=== PATIENT | female | born 1995 | race Caucasian/White ===

== ENCOUNTER 2017-06-05 16:22 | Emergency (ER) | payer MEDICAID, SELFPAY ==
[2017-06-05 16:23] VITALS: BP 115/84; PULSE 96; RESP 14; TEMP 36.7; O2SAT 96; BMI 16.2
--- NOTE | 2017-06-05 16:40 | ED.VISSUMM ---
- ER Visit Summary Date of Service: 06/05/17 Chief Complaint: Suicidal ideation History of Present Illness: The patient is a 21 F presenting with suicidal ideation. She states this has been ongoing for the past several weeks but has worsened over the last couple of days. She states yesterday she held a razor blade to her wrist. She did not cut herself. She has been depressed and eating less recently. She states that she was recently diagnosed with infertility issues. This has increased the amount of stress in her life. She had a previous suicide attempt at age 16 with overdosing. She was seen by the counseling center today and sent in for further evaluation and transfer. Physical Examination: Vitals are stable. Patient is afebrile. Alert no acute distress. HEENT exam is unremarkable. Neck is supple. Lungs are clear and equal bilaterally. Heart is regular rate and rhythm. Abdomen is soft nontender nondistended. Extremities are unremarkable. Skin is warm and dry. No focal neurologic deficit. Depressed affect with suicidal ideation Remainder of exam is unremarkable. Emergency Department Course and Treatment: [place] slip was completed. CBC, chemistries unremarkable. HCG negative. Tox positive for THC. Alcohol negative. Discussed with the counseling center, they have arranged admission to [facility] for psychiatric evaluation. Disposition: Transfer to [facility] Impression: Suicidal ideation This note was generated with [employer]Datatel dictation software. It may contain incorrect words, spelling, and punctuation that were not noted in review of the chart prior to signing ED Disposition - Plan for ED Patient: Chief Complaint: Suicidal Referrals: Gael Matthews DO [Primary Care Provider] -
--- NOTE | 2017-06-05 16:42 | EKG12_ITS ---
Test Reason : MENTAL ONEAL Blood Pressure : / mmHG Vent. Rate : 072 BPM Atrial Rate : 072 BPM P-R Int : 120 ms QRS Dur : 082 ms QT Int : 350 ms P-R-T Axes : 070 059 051 degrees QTc Int : 383 ms Normal sinus rhythm Normal ECG Confirmed by DUANE ARREAGA, ABHISHEK ([id number]), manager editorial XIOMARA MALAGON ([id number]) on 06/07/2017 1:05:17 PM Referred By: IDA Confirmed By:ABHISHEK ZEPEDA MD
[2017-06-05 17:31] LABS: Absolute Lymphocyte Count 2.72 X10^3/ul (0.83-4.51); Absolute Neutrophil Count 2.9 X10^3/uL (2.0-7.7); Basophil# 0.02 X10^3/uL; Basophil% 0.3 % (0-1); Eosinophil# 0.05 X10^3/uL; Eosinophils% 0.8 % (0-5); Hemoglobin 13.6 g/dl (12.0-15.0); Lymphocyte # 2.72 X10^3/ul (4.0); Lymphocyte % 44.2 % (19-41); Mean Corpuscular Hgb 32.2 pg (27.0-32.0); Mean Corpuscular Volume 94.6 fL (81-99); Mean Platelet Vol. 9.5 fl (6.2-12.0); Monocyte# 0.47 X10^3/uL; Monocyte% 7.6 % (0-10); Neutrophil # 2.88 X10^3/uL (2.7-7.7); Neutrophil % 46.9 % (47-70); Platelet Count 184 K/mm3 (150-450); RBC Distribution Width CV 12.5 % (11.6-14.6); RBC Distribution Width SD 42.9 fl (35.1-43.9); Red Blood Count 4.23 M/mm3 (4.2-5.4); White Blood Count 6.2 K/mm3 (4.4-11.0)
[2017-06-05 17:33] LABS: POSITIVE COUNT NO; POSITIVE DIFFERENTIAL NO; POSITIVE MORPHOLOGY NO
[2017-06-05 17:41] LABS: AST(SGOT) 13 U/L (15-37); Alanine Aminotransfer ALT/SGPT 17 U/L (13-56); Albumin, Serum 3.8 g/dL (3.2-5.0); Alkaline Phosphatase 56 U/L (45-117); Anion Gap 9 (5-15); BUN 11 mg/dL (7-18); BUN/Creat Ratio 14.2 RATIO (10-20); Bilirubin, Direct 0.09 mg/dL (0.00-0.30); Calcium,Total 8.7 mg/dL (8.5-10.1); Chloride 111 mmol/L (98-107); Creatinine, Serum 0.77 mg/dL (0.55-1.02); EST Glomerular Filtration Rate 99 mL/min (>60); Est Glom Filt Rate - Afr Amer 120 mL/min (>60); Estimated Creatinine Clearance 78.62 ml/min; Globulin 3.3 g/dL (2.2-4.2); Glucose 104 mg/dL (74-106); Potassium 3.6 mmol/L (3.5-5.1); Protein, Total 7.1 g/dL (6.4-8.2); Sodium Level 141 mmol/L (136-145)
[2017-06-05 17:53] LABS: Bacteria 0 SEEN /hpf (None Seen); Red Blood Cells-Urine 0 SEEN /hpf (0-5)
--- NOTE | 2017-06-05 17:54 | NURSING ---
ARIE, JESSICA, CALLED. WE ARE TO FAX LABS WHEN ALL BACK. TIM WILL BE COMING IN TO FOLLOWUP ON PATIENT. NITA FAXED HER WRITEUP FROM THE COUNSELING CENTER ALREADY
[2017-06-05 17:55] LABS: Pregnancy, Serum, hCG Quali. NEGATIVE Negative (0-9 Nonpreg)
[2017-06-05 18:08] LABS: Color, Urine Yellow (Yellow); Glucose, Dipstick Normal (Normal); Ketone-Dipstick 5 mg/dl (Negative); Leukocyte Esterase-Dipstick 25 /ul (Negative); Nitrite-Dipstick Negative (Negative); Occult Blood-Urine Negative /ul (Negative); Protein-Dipstick 15 mg/dl (Negative); Urine Bilirubin Dipstick Negative (Negative); Urine Clarity Clear (Clear); Urine Urobilinogen 1 mg/dl (Normal); Urine pH 6.5 (5.0 - 8.0)
[2017-06-05 18:11] LABS: Amphetamine Urine VISTA NEGATIVE (<1000 ng/mL); Barbiturate Urine VISTA NEGATIVE (< 200 ng/mL); Benzodiazepine Urine VISTA NEGATIVE (< 200 ng/mL); Cocaine Urine VISTA NEGATIVE (< 300 ng/mL); Ecstacy Urine VISTA NEGATIVE (< 500 ng/mL); Methadone Urine VISTA NEGATIVE (< 300 ng/mL); PCP Urine VISTA NEGATIVE (< 25 ng/mL); THC Urine VISTA POSITIVE (< 50 ng/mL); Vista UDS pH Range 6
[2017-06-05 18:46] LABS: Mucous, Urine 2+ /hpf (<or=2+); Squamous Epithelial Cells - UA 0-5 SEEN /hpf (5-10); White Blood Cells 0-5 SEEN /hpf (0-5)
--- NOTE | 2017-06-05 19:16 | ED.RN ---
1311 Requested information faxed to [facility] transfer line for admission to [facility] via area secretary.
[2017-06-05 19:28] VITALS: BP 108/78; PULSE 63; RESP 18; O2SAT 96
[2017-06-05 20:19] VITALS: BP 104/62; PULSE 78; RESP 20; O2SAT 97
--- NOTE | 2017-06-05 20:20 | ED.RN ---
THIS NURSE ASKED DR. PRIETO IF IT WAS OK TO ORDER PO ZOFRAN FOR THE PATIENT SHE FEELS NAUSEOUS AND ALSO IF IT IS OK IF PATIENT TAKES HER OWN CONTROL PILL THAT IS LOCATED IN HER LOCKED UP THINGS AT 2200. DR. PRIETO SAID YES TO BOTH.
[2017-06-05] MEDS: Ondansetron 8 MG Tablet 4 MG PO (20:29)
[2017-06-05 22:14] VITALS: BP 100/68; PULSE 54; RESP 18; O2SAT 95
--- NOTE | 2017-06-05 22:14 | ED.RN ---
PATIENT WAS GIVEN PREVIEM TABLET CONTROL OUT OF HER OWN PERSONAL MEDICATIONS. BC BILLS WERE RETURNED TO HER BAGS.
[2017-06-06 00:02] VITALS: BP 111/73; PULSE 70; RESP 18; O2SAT 97
[2017-06-06 03:31] VITALS: RESP 18
[2017-06-06 05:02] VITALS: RESP 18
[2017-06-06 06:01] VITALS: RESP 18
--- NOTE | 2017-06-06 08:50 | ED.RN ---
PT SLEEPING. BREAKFAST TRAY DELIVERED AT 0800, PT AWAKENED AND TRAY LEFT AT BEDSIDE. PT DENIES FURTHER NEEDS.
[2017-06-06] MEDS: Ondansetron ODT 4 MG Tablet PO (10:34)
[2017-06-06 11:02] VITALS: BP 110/77; PULSE 18
== END 2017-06-06 11:03 | disposition home or self-care (01) ==
LOC: ED 17:14
PROVIDERS: Emergency Provider Emergency Medicine; Family Provider Family Medicine; PCP Family Medicine
DX: R45.851 Suicidal ideations (principal); Z72.0 Tobacco use
CPT/HCPCS: 80048; 80076; 80307; 80320; 81001; 84703; 85025; 93005; 99284; G0480

== ENCOUNTER 2017-08-05 21:03 | Emergency (ER) | payer MEDICAID, SELFPAY ==
[2017-08-05 21:04] VITALS: BP 132/90; PULSE 138; RESP 20; TEMP 38.5; O2SAT 95; BMI 17.1
--- NOTE | 2017-08-05 21:54 | CT_ITS ---
STUDY: CT ABDOMEN AND PELVIS WITH CONTRAST REASON FOR EXAM: Female, 21 years old. Abdominal pain and right lower quadrant pain RADIATION DOSAGE (If Supplied By Facility): CTDIvol = ( 5.58 ) mGy, DLP = ( 218.96 ) mGycm TECHNIQUE: Transaxial images were obtained from the dome of the diaphragm to the symphysis pubis with oral contrast. 100ML ml of Isovue 300 contrast was administered. Sagittal and coronal images were reconstructed. Individualized dose optimization techniques were used for this CT. COMPARISON: None. FINDINGS: Left lower lobe pneumonia. The visualized portions of the heart are within normal limits. Normal liver. Normal gallbladder and extrahepatic biliary system. Normal spleen. Normal pancreas. Normal bilateral adrenal glands. Normal right kidney. Normal left kidney. Normal visualized stomach. Normal small intestine. Normal colon. The appendix is visualized and appears normal. Normal abdominal aorta. Normal inferior vena cava. Normal retroperitoneum. Normal urinary bladder. Normal abdominal wall. Normal osseous structures. CT/Abdomen/Pelvis WITH Contrast IMPRESSION: Left lower lobe pneumonia. No evidence of appendicitis, acute intestinal pathology or acute obstructive uropathy. Electronically Signed: Eduardo Oviedo MD at 0:21 EDT Tel , Service support ,
--- NOTE | 2017-08-05 21:58 | ED.DCSUM_ITS ---
- ER Visit Summary Date of Service: 08/05/17 Chief Complaint: Fever History of Present Illness: The patient is a 21 F intermittent fevers for the past 3 weeks. One and half week ago saw the urgent care due to having sore throat symptoms. Was told she had gastritis. She had no abdominal pain at that time. No vomiting at that time. She did state intermittent diarrhea and constipation. Has tolerated oral fluids. No recent antibiotics. States over the last 2 days pain right side abdomen progressive the right lower quadrant. Urinary urgency. Last menstrual period 2 weeks ago. Normal cycles. No history of ovarian cysts. Sore throat has improved. Intermittent nausea vomiting for 2 days 3-4 episodes no hematemesis. Last meal in oral intake was at 2 PM 8 hours ago. No surgical history. States that generalized myalgias also. No flu vaccination this year. Complains of cough over the last couple days also. Physical Examination: General: Alert and oriented ?3, no acute distress, nontoxic HEENT: Normocephalic, atraumatic. Mild dry mucosa membranes Neck: supple, nontender. Cardiovascular: Regular tachycardic rate 102 and rhythm, no murmurs Respiratory: Normal breath sounds, symmetric, no distress Abdomen: Soft, mild tenderness right lower quadrant without guarding or rebound. Normal bowel sounds. Negative Mcwilliams's. Back: No CVA tenderness Extremities: Nontender, no edema, pulses intact ?4 Neuro: no focal neurological deficits. Test Results: White count 9.4. Hemoglobin 12. Creatinine 0.73. Urine leukocytes 25, negative nitrites, negative white blood cells. Influenza negative. CT scan abdomen pelvis with contrast noted normal appendix. No intra -abdominal process. Noted left lower lobe pneumonia. Emergency Department Course and Treatment: Patient initial triage heart rate was 138, on my evaluation 102. She is nontoxic. She was febrile at 101. She has slight right lower quadrant tenderness without guarding or rebound. Appendicitis workup initiated. Labs normal. Urine noted 25 leukocytes, negative nitrites or white blood cell counts. Influenza was negative. Given IV fluids and Zofran. Find any medications for pain. Reevaluation heart rate improved in the 90s, fevers improved. Pending CT scan results. Mother was present on reevaluation, there is no family history of Crohn's or ulcerative colitis. Patient's vitals improved in the ED. Clinically felt much better. CT results notes normal appendix. There is no intra-abdominal process. However did note left lower lobe infiltrate. Patient was not tachypneic or hypoxic. She is febrile with cough. She will be treated for community acquired pneumonia with her fever. Doxycycline was started. The signs and symptoms return. Otherwise should follow-up with her PCP. All questions were answered. Treatment Plan: [] Disposition: Discharge Impression: 1. Right lower quadrant abdominal pain 2. Nausea and vomiting 3. Fever 4. Community-acquired pneumonia This note was generated with [employer] dictation software. It may contain incorrect words, spelling, and punctuation that were not noted in review of the chart prior to signing ED Disposition - Plan for ED Patient: Disposition: Home or Assisted Living Chief Complaint: Fever Diagnosis: Community acquired pneumonia, Right lower quadrant abdominal pain, Nausea and vomiting, Fever Instructions: ED Pneumonia Adult, ED Diet Vomiting Diarrhea Prescriptions: Ondansetron [Zofran Odt] 4 mg PO Q8H PRN PRN #10 tablet PRN Reason: Nausea Doxycycline Monohydrate 100 mg PO BID #20 capsule Referrals: Gael Matthews DO [Primary Care Provider] - 3-5 Days
[2017-08-05 22:11] VITALS: O2SAT 18
[2017-08-05] MEDS: 0.9% Normal Saline 1,000 ML 1000 ML IV (22:15)
[2017-08-05] MEDS: Ondansetron 4 MG/2 ML Vial IV (22:15)
[2017-08-05 22:17] LABS: Absolute Lymphocyte Count 2.11 X10^3/ul (0.83-4.51); Absolute Neutrophil Count 6.4 X10^3/uL (2.0-7.7); Basophil# 0.01 X10^3/uL; Basophil% 0.1 % (0-1); Eosinophil# 0.05 X10^3/uL; Eosinophils% 0.5 % (0-5); Hematocrit 35.7 % (37-47); Lymphocyte # 2.11 X10^3/ul (4.0); Lymphocyte % 22.4 % (19-41); Mean Corp Hgb Conc 33.6 g/gl (32-36); Mean Corpuscular Hgb 30.8 pg (27.0-32.0); Mean Corpuscular Volume 91.5 fL (81-99); Monocyte# 0.89 X10^3/uL; Monocyte% 9.4 % (0-10); Neutrophil # 6.36 X10^3/uL (2.7-7.7); Neutrophil % 67.5 % (47-70); Platelet Count 204 K/mm3 (150-450); RBC Distribution Width CV 12.2 % (11.6-14.6); RBC Distribution Width SD 40.8 fl (35.1-43.9); White Blood Count 9.4 K/mm3 (4.4-11.0)
[2017-08-05 22:20] LABS: POSITIVE COUNT NO; POSITIVE DIFFERENTIAL NO; POSITIVE MORPHOLOGY NO
[2017-08-05 22:24] LABS: Mucous, Urine 0 SEEN /hpf (<or=2+); Red Blood Cells-Urine 0 SEEN /hpf (0-5)
[2017-08-05 22:29] LABS: Anion Gap 8 (5-15); BUN 8 mg/dL (7-18); Calcium,Total 8.3 mg/dL (8.5-10.1); Chloride 109 mmol/L (98-107); Creatinine, Serum 0.73 mg/dL (0.55-1.02); EST Glomerular Filtration Rate 107 mL/min (>60); Est Glom Filt Rate - Afr Amer 129 mL/min (>60); Estimated Creatinine Clearance 89.74 ml/min; Glucose 80 mg/dL (74-106); Potassium 3.7 mmol/L (3.5-5.1); Sodium Level 139 mmol/L (136-145)
[2017-08-05 22:32] LABS: Color, Urine Yellow (Yellow); Glucose, Dipstick Normal (Normal); Ketone-Dipstick 5 mg/dl (Negative); Leukocyte Esterase-Dipstick 25 /ul (Negative); Nitrite-Dipstick Negative (Negative); Occult Blood-Urine Negative /ul (Negative); Protein-Dipstick 30 mg/dl (Negative); Specific Gravity, Urine 1.015 (1.002-1.030); Urine Bilirubin Dipstick Negative (Negative); Urine Clarity Clear (Clear); Urine Urobilinogen 1 mg/dl (Normal)
[2017-08-05 22:34] LABS: Internal QC Validated? YES +Cl - CLEAR BKGD
[2017-08-05 22:35] LABS: Pregnancy, Urine Negative Negative
[2017-08-05 22:38] LABS: Bacteria 1+ /hpf (None Seen); Squamous Epithelial Cells - UA 0-5 SEEN /hpf (5-10); White Blood Cells 0-5 SEEN /hpf (0-5)
[2017-08-05 23:06] VITALS: BP 114/72; PULSE 93; RESP 18; TEMP 37.6; O2SAT 97
[2017-08-05] MEDS: 0.9% Normal Saline 1,000 ML 150 ML IV (23:08)
[2017-08-06 00:20] VITALS: BP 128/89; PULSE 92; RESP 16; O2SAT 97
[2017-08-06] MEDS: Doxycycline 100 MG CAPSULE PO (00:37)
[2017-08-06 00:41] VITALS: BP 128/89; PULSE 92; RESP 16
== END 2017-08-06 00:41 | disposition home or self-care (01) ==
PROVIDERS: Emergency Provider Emergency Medicine; Family Provider Family Medicine; PCP Family Medicine
DX: J18.9 Pneumonia, unspecified organism (principal); R10.31 Right lower quadrant pain; R50.9 Fever, unspecified; R11.2 Nausea with vomiting, unspecified; F41.9 Anxiety disorder, unspecified; F32.9 Major depressive disorder, single episode, unspecified; Z72.0 Tobacco use; Z79.899 Other long term (current) drug therapy
CPT/HCPCS: 74177; 80048; 81001; 81025; 85025; 87804; 96361; 96374; 99284; J7030; Q9967; A4216; J2405

== ENCOUNTER → 2017-10-18 11:20 | Outpatient (CLI) | payer MEDICAID, SELFPAY ==
[2017-10-23 10:50] LABS: HPV Reflexed? NOT INDICATED
== END ==
PROVIDERS: Family Provider Family Medicine; PCP Family Medicine; Visit Provider Nurse Practitioner Women's Health
DX: Z12.4 Encounter for screening for malignant neoplasm of cervix (principal)
CPT/HCPCS: 88175; G0145

== ENCOUNTER 2017-11-29 17:20 | Emergency (ER) | payer MEDICAID, SELFPAY ==
[2017-11-29 17:20] VITALS: BP 115/74; PULSE 90; RESP 16; TEMP 37.3; O2SAT 97; BMI 19.1
[2017-11-29] MEDS: 0.9% Normal Saline 1,000 ML 1000 ML IV (17:53)
[2017-11-29] MEDS: Dicyclomine 10 MG Capsule 20 MG PO (17:53)
[2017-11-29] MEDS: Loperamide 2 MG Capsule 4 MG PO (17:53)
[2017-11-29 18:14] LABS: Absolute Lymphocyte Count 2.29 X10^3/ul (0.83-4.51); Absolute Neutrophil Count 3.3 X10^3/uL (2.0-7.7); Basophil# 0.01 X10^3/uL; Basophil% 0.2 % (0-1); Eosinophil# 0.05 X10^3/uL; Eosinophils% 0.8 % (0-5); Hematocrit 38.3 % (37-47); Hemoglobin 12.9 g/dl (12.0-15.0); Lymphocyte # 2.29 X10^3/ul (4.0); Mean Corp Hgb Conc 33.7 g/gl (32-36); Mean Corpuscular Hgb 31.3 pg (27.0-32.0); Mean Platelet Vol. 9.6 fl (6.2-12.0); Monocyte# 0.56 X10^3/uL; Neutrophil # 3.28 X10^3/uL (2.7-7.7); Platelet Count 169 K/mm3 (150-450); RBC Distribution Width SD 43.9 fl (35.1-43.9); Red Blood Count 4.12 M/mm3 (4.2-5.4); White Blood Count 6.2 K/mm3 (4.4-11.0)
[2017-11-29 18:19] LABS: POSITIVE COUNT NO; POSITIVE DIFFERENTIAL NO; POSITIVE MORPHOLOGY NO
[2017-11-29 18:24] LABS: ALB/GLOB Ratio 1.1 RATIO (0.9-2.4); AST(SGOT) 13 U/L (15-37); Alanine Aminotransfer ALT/SGPT 15 U/L (13-56); Albumin, Serum 3.6 g/dL (3.2-5.0); Alkaline Phosphatase 51 U/L (45-117); Anion Gap 6 (5-15); BUN 8 mg/dL (7-18); BUN/Creat Ratio 9.6 RATIO (10-20); Calcium,Total 8.5 mg/dL (8.5-10.1); Chloride 110 mmol/L (98-107); Creatinine, Serum 0.83 mg/dL (0.55-1.02); EST Glomerular Filtration Rate 91 mL/min (>60); Est Glom Filt Rate - Afr Amer 110 mL/min (>60); Estimated Creatinine Clearance 87.55 ml/min; Globulin 3.3 g/dL (2.2-4.2); Glucose 87 mg/dL (74-106); Potassium 3.9 mmol/L (3.5-5.1); Protein, Total 6.9 g/dL (6.4-8.2); Sodium Level 141 mmol/L (136-145)
[2017-11-29 18:28] LABS: Pregnancy, Serum, hCG Quali. NEGATIVE Negative (0-9 Nonpreg)
[2017-11-29 18:55] LABS: Bacteria 0 SEEN /hpf (None Seen); Mucous, Urine 0 SEEN /hpf (<or=2+); Red Blood Cells-Urine 0 SEEN /hpf (0-5); Squamous Epithelial Cells - UA 0 SEEN /hpf (5-10); White Blood Cells 0 SEEN /hpf (0-5)
[2017-11-29 19:12] LABS: Color, Urine Yellow (Yellow); Glucose, Dipstick Normal (Normal); Ketone-Dipstick Negative (Negative); Leukocyte Esterase-Dipstick Negative /ul (Negative); Nitrite-Dipstick Negative (Negative); Occult Blood-Urine Negative /ul (Negative); Protein-Dipstick Negative (Negative); Specific Gravity, Urine 1.015 (1.002-1.030); Urine Bilirubin Dipstick Negative (Negative); Urine Clarity Clear (Clear); Urine Urobilinogen Normal (Normal)
[2017-11-29 19:23] LABS: Lipase 354 U/L (73-393)
[2017-11-29 19:28] VITALS: BP 116/76; PULSE 76; RESP 16; O2SAT 98
--- NOTE | 2017-11-29 19:43 | ED.VISSUMM ---
- ER Visit Summary Date of Service: 11/29/17 Chief Complaint: [Diarrhea and abdominal pain] History of Present Illness: The patient is a 22 F [presents the emergency department complaint of diarrhea and abdominal pain that she has had ongoing for about 3 days. Patient states that yesterday she had about 10 episodes of watery to oily stools. Patient has had intermittent nausea but no vomiting. Patient denies any blood in her stool. She denies any sick contacts. Patient has had some chills but no documented fever. Patient states that her urine has been dark for several days. Patient denies any recent antibiotic usage. She denies any recent travel. Patient states that her last antibiotic usage was last August. Patient's last menstrual period was 2 weeks ago.] Physical Examination: [HEENT-PERRLA, EOMI. Cranial nerves II through XII grossly intact. TMs clear. Mucous membranes moist. No adenopathy. Cardiovascular-regular rate and rhythm without murmur or ectopy Lungs-clear to auscultation, chest wall stable without crepitus or subcu emphysema Abdomen-normoactive bowel sounds, soft. Patient has some mild diffuse tenderness on palpation. There is no rebound, rigidity, or perineal signs. No tenderness over the right upper quadrant. Negative Mcwilliams sign. Extremities-intact ?4, normal range of motion, normal pulses, atraumatic] Test Results: [CBC with differential obtained was normal. Chemistries were normal. LFTs were normal. Lipase was 354. Urinalysis was normal. HCG was negative.] Emergency Department Course and Treatment: [Patient received a liter normal same fluid bolus and given Zofran and Bentyl as well as Imodium. I had ordered initially stool for enteric pathogens however patient unable to produce a sample despite a stay of over 2 hours.] Treatment Plan: [I wanted to send patient home with a prescription to bring in a stool sample to the lab however she states that if she is not getting better that she will just come back to the hospital and does not want a prescription. Patient will be given a prescription for Zofran and Bentyl and advised use Imodium as needed for diarrhea] Disposition: [Discharged home in stable condition] Impression: [Gastroenteritis Abdominal pain] This note was generated with [employer] dictation software. It may contain incorrect words, spelling, and punctuation that were not noted in review of the chart prior to signing ED Disposition - Plan for ED Patient: Chief Complaint: Abd Pain Referrals: Gael Matthews DO [Primary Care Provider] -
--- NOTE | 2017-11-29 19:46 | ED.DEP ---
ED Disposition - Plan for ED Patient: Chief Complaint: Abd Pain Instructions: ED Abdominal Pain Unkn Cause, ED Gastroenteritis Viral Prescriptions: Ondansetron [Zofran Odt] 4 mg PO Q8H PRN PRN #10 tab PRN Reason: Nausea Dicyclomine HCl [Bentyl] 20 mg PO TIDAC #20 cap Referrals: Gael Matthews DO [Primary Care Provider] - 3-5 Days
[2017-11-29 20:08] VITALS: BP 101/89; PULSE 60; RESP 18; O2SAT 99
== END 2017-11-29 20:09 | disposition home or self-care (01) ==
LOC: ED 18:30
PROVIDERS: Emergency Provider Emergency Medicine; Family Provider Family Medicine; PCP Family Medicine
DX: K52.9 Noninfective gastroenteritis and colitis, unspecified (principal); R10.84 Generalized abdominal pain; Z72.0 Tobacco use
CPT/HCPCS: 80053; 81001; 83690; 84703; 85025; 96360; 96361; 99284; J7030; A4216

== ENCOUNTER → 2018-10-18 | Outpatient (CLI) | payer MEDICAID, SELFPAY ==
[2018-10-02 14:38] VITALS: BMI 19.1
--- NOTE | 2018-10-18 10:58 | US_ITS ---
STUDY: ULTRASOUND BREAST - LEFT REASON FOR EXAM: Female, 23 years old. Ko no evidence of TECHNIQUE: Axial and longitudinal images of the LEFT breast were performed with a high resolution ultrasound transducer. COMPARISON: None. FINDINGS: LEFT Breast: There is 0.8 x 0.7 cm hypoechoic nodule at 1:00 o'clock near the nipple most likely represented a cyst with some debris, there is some posterior enhancement behind. There is hyperechoic nodule measures 1 x 1 x 0.3 cm this is around 12:00 most likely a lipoma. These two findings can be followed up within 3-6 months. US/Breast Limited Unilateral IMPRESSION: Benign findings for follow-up as above. Electronically Signed: Randy Ames, at 14:30 EDT Tel , Service support ,
== END | disposition home or self-care (01) ==
LOC: OPUS 10:56
DX: N63.22 Unspecified lump in the left breast, upper inner quadrant (principal)
CPT/HCPCS: 76642

== ENCOUNTER 2018-11-12 07:44 | Day surgery (SDC) | payer MEDICAID, SELFPAY ==
[2018-11-05 09:52] VITALS: BMI 19.1
--- NOTE | 2018-11-05 10:30 | HP_ITS ---
Intake Vital Signs 11/05/18 Body Mass Index (BMI) 19.1 11/05/18 Height 5 ft 4.25 in 11/05/18 Weight: 95 lb 11/05/18 Body Mass Index (BMI) 16.2 11/05/18 Blood Pressure 123/81 H 11/05/18 Blood Pressure Location Rt brachial 11/05/18 Respiratory Rate 16 11/05/18 Pulse Rate 85 11/05/18 Pulse Ox 99 Intake Visit Reasons: L Breast Nodule US 10/18/18 Chief Complaint: left breast nodule/ nipple discharge Manager Hydraulic Required: No Is patient in pain?: No Allergies amoxicillin Allergy (Severe, Verified 11/05/18 09:51) rash olanzapine [From Zyprexa] Allergy (Verified 10/02/18 14:02) Rash Penicillins [PCN] Allergy (Verified 10/02/18 14:02) Rash hydrocodone [From Vicodin] Adverse Reaction (Mild, Verified 11/05/18 09:51) GI upset Medications desogestrel 0.15 mg-ethinyl estradiol 0.03 mg tablet 1 tab PO QDAY #84 tab 10/02/18 [Rx Confirmed 11/05/18] ondansetron 4 mg disintegrating tablet 4 mg PO TID PRN PRN #30 tab 10/02/18 [Rx Confirmed 11/05/18] pediatric multivitamin no.30 chewable tablet 2 tab PO DAILY 11/05/18 [History Confirmed 11/05/18] Is last menstrual period known: No Post menopausal: No Patient : No PFSH Medical History (Updated 11/05/18 @ 09:49 by Rachel Carl) Anxiety and depression (Acute) Borderline personality disorder (Acute) Anemia (Acute) Chest pain (Acute) Chronic neck and back pain (Acute) Diarrhea (Acute) Difficulty balancing (Acute) Frequent headaches (Acute) Hx of migraines (Acute) Shortness of breath (Acute) Surgical History cryotherapy (Acute) left arm surgery (Acute) Family History (Updated 11/05/18 @ 09:50 by Rachel Carl) Grandfather Heart disease Diabetes Grandmother Colon cancer Cancer malignant melanoma and lung Aunt Hodgkin's disease Sister PCOS (polycystic ovarian syndrome) Social History (Updated 11/05/18 @ 10:30 by Usha Stallings MD) Smoking Status: Current every day smoker Tobacco: How many years used: 10 alcohol intake: current alcohol intake frequency: holidays/special occasions only substance use type: marijuana caffeine: Yes what type of physical activity do you participate in: none seatbelt use: always do you feel safe at home: Yes additional social history: Single-Patient is unemployed HPI HPI HPI: JOSIE MORTON, is a 23 F who presents to the office today for HPI HPI Surgical H&P: Yes HPI: JOSIE MORTON, is a 23 F who presents to the office today for left breast lump. Patient states she noticed this about a month and a half ago. At that time she was having only nipple discharge which initially was purulent and then went to bloody for about 2 weeks. Then she states her lump near her nipple was also very tender to palpation and was red she had difficulty sleeping due to the tenderness. Once that resolved patient did have initially some thick yellow nipple discharge which more recently has been white she states she only has nipple discharge with pressure about every 2 to 3 days now. Patient states that the left breast lump is much smaller in size. Patient also states that she has had an inverted nipple on the left ever since she can remember at least from 11 years old on which she will have to roll back to on invert. Patient currently denies any issues with pain for the last 2 or 3 weeks. Patient had an ultrasound of the left breast which did show about a 1 cm lipoma at 12:00 about 3 centers in the nipple as well as the cyst at 1:00 near the nipple which was given a BI-RADS 3. Patient states she did have bilaterally-- thin milky material when she was previously on psych drug; however she has been off that for 1/2 years. ROS General General: Yes weight change and fatigue; no colon cancer, breast cancer or weakness HEENT HEENT: No difficulty swallowing, eye injury, eye surgery, swollen glands or hoarseness Endo Endocrine: No thyroid disease, diabetes mellitus, thyroid cancer, Hair loss, heat intolerance or cold intolerance Breast Breast: Yes left breast lump, nipple discharge, abnormal mammogram and abnormal US; no right breast lump, breast pain or breast enlargement Cardio Cardiovascular: No murmur, pacemaker, heart disease, atrial fibrillation, high blood pressure, heart attack, heart stent, palpitations, shortness of breat with exertion or chest pain Psych Psychiatric: Yes depression and anxiety; no hearing voices Resp Respiratory: Yes shortness of breath, No sleep apnea, Yes cough, No COPD, No asthma, No emphysema, No wheezing Gastro Gastrointestinal: Yes abdominal pain, Yes nausea or vomiting, Yes diarrhea, Yes constipation, No blood in stool, No acid reflux, No hemorrhoids, No ulcers, No gallbladder problem, No black,tarry stools Basil Hematologic: No blood thinners, No blood disorders, No bleeding, Yes anemia, No blood clots Neuro Neurologic: No weakness Exam Const General: cooperative, comfortable, no acute distress Chest Breast inspection: normal inspection of the breasts Breast Palpation: Yes no axillary lymphadenopathy, Yes nipple discharge, No supraclavicular Other: Left breast: Small mobile lump located at 1:00 near the nipple below the areolar, nontender, no obvious nipple discharge currently even with pressure. Above left nipple was slightly inverted once edges rolled back and did stay out. Right breast: No masses or lumps appreciated no nipple discharge. Bilaterally: no supraclavicular or axillary adenopathy. Cardio Heart Sounds: no murmurs Assessment & Plan Problems 1. Breast lump on left side at 1 o'clock position N63.21 Plan History and ultrasound may be consistent with epidermal inclusion cyst which does communicate with the breast ducts. Discussed with patient that a follow-up ultrasound would not prevent this from possibly get infected again and likely would just be scheduling excision at that time and patient wanted to avoid repeat infection. Discussed with patient procedure of excision of left breast subcutaneous mass. This would include an incision at the areolar border. Discussed risk including but not limited to bleeding, seroma, nipple discharge after surgery due to communication with the operative site which should resolve, infection, need for further surgery depending on pathology, and anesthesia. Patient and her mother had no further questions at this time. And agreeable to proceed with excision. Usha Stallings M.D. Pager: [phone] [facility] [address] [place] [address], [facility], [address] [place] [id number] Office: [phone] Plan Detail Follow Up We will schedule excision of left breast subcutaneous mass Coding Level of Care Code Off vis,new,level 3 Diagnoses Breast lump on left side at 1 o'clock position N63.21 11/05/18 1031 <Electronically signed by Usha Jerome am, MD> Date _ Usha Stallings MD I have examined the patient the following changes are noted: Patient still states she only has thick white stuff comes out she only had a little bit last night. Patient and her mom have no further questions this time.
[2018-11-12] VITALS (7 sets, daily range): BP systolic 101–122; BP diastolic 69–90; PULSE 58–85; RESP 16; TEMP 36.3–36.9; O2SAT 97–100; BMI 16.5
--- NOTE | 2018-11-12 09:20 | MASS_PTH ---
PATIENT: JOSIE MORTON LOC: [facility] U#:[id number] AGE/SX: ROOM: RE11/12/[address]: Dr. Usha Stallings MD : [id number] BED: DIS: 11/12/2018 SPEC #: [id number] RECD: 11/13/18 07:54 STATUS: FAYE CEE #: [id number] LOLI: 11/12/18 09:[address]: Usha Stallings DEPT: SURGICAL PATHOLOGY RECD BY: Mayank Henry ENTERED: 11/13/18 11:02 SP TYPE: Mass OTHR DR: Maddie Rehman, MECHANICAL CAD DRAFTER-C [facility] Tissues: Left breast, NOS Procedures: Surgery Specimen Level IV HEADER OPERATION: Breast biopsy, subcutaneous mass PRE-OP DIAGNOSIS: Breast lump on left side at 1 o'clock position TISSUE SUBMITTED: Left breast subcutaneous mass, long stitch - lateral, short stitch - superior MICROSCOPIC DIAGNOSIS Subcutaneous mass, left breast, excision: Densely collagenized stroma with focal duct ectasia. No evidence of malignancy. See comment. AM:sunni 11/14/18 COMMENT The morphologic findings are not consistent with a fibroadenoma. The lesion may represent portions of a hamartoma.. Clinical correlation is suggested. Case has been reviewed in consultation with Dr. Jones who concurs with the above diagnosis. IDC:JANICE MICROSCOPIC DESCRIPTION Slides are reviewed. GROSS DESCRIPTION Received in fixative is one container labeled with the patient's name and designated left breast subcutaneous mass. The specimen consists of a piece of cross, indurated tissue measuring 2.5 x 1 x 0.6?cm. The specimen is inked as follows: anterior - yellow, posterior - black, superior - blue, inferior??green, medial - red and lateral - orange. The sections reveal cross, solid cut surfaces. The entire specimen is submitted in two cassettes: 1 - medial and lateral margins, 2 - rest of the specimen. / JANICE:sunni 11/13/18 TC:1 CPT: 48514
[2018-11-12 09:57] LABS: Internal QC Validated? YES +Cl - CLEAR BKGD; Pregnancy, Urine Negative Negative
--- NOTE | 2018-11-12 10:46 | PCM.OPRPT ---
Report of Operation Date of Procedure: 11/12/18 Pre-Operative Diagnosis: Left breast subcutaneous mass Post-Operative Diagnosis: same Surgery/Procedure Performed:: Excision of left breast Subcutaneous mass sale professional digital marketing: Olivia Barry Type of Anesthesia:: General/Supplemental Anesthesiologist: Vito Hope Special Medications: Clindamycin 900 mg IV x1 Specimen's removed: Left breast subcutaneous mass Estimated Blood Loss (mL): < 10 cc Fluids Replaced: 600 cc Description of Procedure: Patient was brought into the room placed supine on the operating table. A timeout was completed verifying correct patient, procedure, site, positioning, special, prior to beginning procedure. General anesthesia was induced. The left breast was prepped and draped in usual sterile fashion. Local anesthesia of 0.25% Marcaine for a total of 10 cc. Curvilinear incision was made along the areolar border from 12:00 to 2:00. 15 blade scalpel was used for incision and deepened with electrocautery. The subcutaneous mass was grasped with an hemostat and sharply dissected. The subcutaneous mass was marked with silk long suture laterally and short stitch superior. Subcutaneous mass was to pathology. The incision was irrigated with sterile water. The incision was closed with 4-0 Monocryl running suture and Dermabond. Patient was extubated. Patient tolerates procedure well and was taken to the postanesthesia care unit in stable condition. - Complications none
[2018-11-12] MEDS: Bupivacaine 0.25% 30 ML Vial (10:49)
--- NOTE | 2018-11-12 10:52 | PCM.DC.GS ---
Discharge Diet: No Restrictions Discharge Activity: May not drive while taking narcotic pain medications. May shower in (days): 1 Call your doctor if your incision/area has: Continuous Slow Oozing, Sudden Increased Bleeding, Increased Pain/ Swelling, Increased Redness, Foul Smelling Discharge, Swelling at the incision site Call your doctor if you observe: Fever of 101 or Higher Allergies/Adverse Reactions: Allergies amoxicillin Allergy (Severe, Verified 11/07/18 08:06) rash olanzapine [From Zyprexa] Allergy (Verified 11/07/18 08:06) Rash Penicillins [PCN] Allergy (Verified 11/07/18 08:06) Rash hydrocodone [From Vicodin] Adverse Reaction (Mild, Verified 11/07/18 08:06) GI upset Medications to take at Discharge desogestrel 0.15 mg-ethinyl estradiol 0.03 mg tablet 1 tab PO QDAY #84 tab 10/02/18 ondansetron 4 mg disintegrating tablet 4 mg PO TID PRN PRN #30 tab 10/02/18 pediatric multivitamin no.30 chewable tablet 2 tab PO DAILY 11/05/18 Oxycodone HCl/Acetaminophen [Percocet 5/325] 1 tab PO Q6H PRN PRN 3 Days #10 tab 11/12/18 The following prescriptions were given: Oxycodone HCl/Acetaminophen [Percocet 5/325] 1 tab PO Q6H PRN PRN 3 Days #10 tab PRN Reason: Pain Transmission Status: Received by [employer] #30 Orders to be completed after discharge: ,Urine Time Frame: 11/12/18, Facility: [facility], Location: Laboratory Primary Care Physician: Alvina Storey [Primary Care Provider] - Test Results: Test results from this visit will be discussed in further detail at your follow-up appointment, if applicable. Please Follow Up With: Usha Stallings MD - After 5 PM/on the weekends call [phone] with any concerns When: Call the office for follow-up appointment in 1 to 2 weeks. Proposed Discharge Date: 11/12/18
[2018-11-12] MEDS: Acetaminophen 325 MG Tablet PO (12:29)
[2018-11-12] MEDS: oxyCODONE 5 MG Tablet PO (12:29)
== END 2018-11-12 12:54 | disposition home or self-care (01) ==
LOC: SDC 07:45 → AC 07:46
PROVIDERS: Referring Provider Surgery; Visit Provider Surgery
PROC: (CPT 19301; principal; 2018-11-12 09:05)
DX: N60.42 Mammary duct ectasia of left breast (principal); F60.3 Borderline personality disorder; F17.200 Nicotine dependence, unspecified, uncomplicated; D64.9 Anemia, unspecified; Z79.899 Other long term (current) drug therapy
CPT/HCPCS: 00400; 19120; 81025; 88305; J7120; J2405

== ENCOUNTER → 2019-01-13 | Outpatient (CLI) | payer MEDICAID, SELFPAY ==
[2018-11-12 08:03] VITALS: BMI 16.5
[2019-01-07 10:15] VITALS: BMI 16.5
--- NOTE | 2019-01-13 08:06 | US_ITS ---
STUDY: ULTRASOUND BREAST - LEFT REASON FOR EXAM: Female, 23 years old. Left breast pain. TECHNIQUE: Axial and longitudinal images of the LEFT breast were performed with a high resolution ultrasound transducer. COMPARISON: Comparison is made with prior sonogram dated October 18, 2018. FINDINGS: LEFT Breast: There is a 1 cm x 1 cm x 0.3 cm echogenic nodule suggestive of a lipoma at the 1:00 position of the breast at 2 cm from nipple. The previously seen cyst with the low-level echoes is not seen at this time. US/Breast Limited Unilateral IMPRESSION: 1 cm x 1 cm x 0.3 cm echogenic nodule suggestive of a lipoma at the 1:00 position of the breast at 2 cm ASSESSMENT CATEGORY: BIRADS Category 2: Benign. A letter regarding these results will be sent to the patient by the facility within 30 days. Electronically Signed: Silvino Granda, at 12:45 EDT , Service support ,
== END | disposition home or self-care (01) ==
LOC: OPUS 08:05
PROVIDERS: Referring Provider Surgery; Visit Provider Surgery
DX: N64.4 Mastodynia (principal)
CPT/HCPCS: 76641; 76642

== ENCOUNTER → 2019-03-17 16:15 | Outpatient (CLI) | payer MEDICAID, SELFPAY ==
[2019-03-17 16:07] VITALS: BMI 16.5
--- NOTE | 2019-03-17 16:23 | RAD_ITS ---
STUDY: X-RAY - RIGHT SHOULDER REASON FOR EXAM: Female, 23 years old. Pain TECHNIQUE: 4 view(s) of the shoulder. COMPARISON: None. FINDINGS: Normal glenohumeral articulation. Normal acromioclavicular joint. Normal acromion. Normal humeral head and visualized proximal humerus. The soft tissue structures are unremarkable. Normal visualized pulmonary apex. RAD/Shoulder min 2 Views IMPRESSION: Normal x-ray examination of the shoulder. Electronically Signed: Anthony Matthews MD at 16:51 EST , Service support ,
--- NOTE | 2019-03-17 16:23 | RAD_ITS ---
STUDY: X-RAY - UNILATERAL RIBS ( RIGHT ) WITH CHEST REASON FOR EXAM: Female, 23 years old. Pain after trauma TECHNIQUE - RIBS: 3 view(s) of the ribs. TECHNIQUE - CHEST: Single PA view of the chest. COMPARISON: None. FINDINGS - RIBS: Normal visualized ribs without a demonstrated fracture. FINDINGS - CHEST: The lungs are clear and expanded. There is no demonstrated pleural abnormality. Normal size heart. Normal mediastinum and luz maria. Normal visualized pulmonary arteries. Normal visualized aortic arch and descending thoracic aorta. Normal visualized thoracic spine. Normal visualized ribs, clavicles, and shoulders. There is no demonstrated abnormality of the visualized soft tissue structures of the upper abdomen. RAD/Ribs Uni Min 3V w/PA Chest IMPRESSION: RIBS: Normal x-ray examination of the ribs. CHEST: Normal x-ray examination of the chest. Electronically Signed: Anthony Matthews MD at 16:52 EST , Service support ,
== END ==
PROVIDERS: Referring Provider Physician Assistant; Visit Provider Physician Assistant
DX: R07.89 Other chest pain (principal); M25.511 Pain in right shoulder
CPT/HCPCS: 71101; 73030

== ENCOUNTER → 2019-04-24 10:53 | Outpatient (CLI) | payer MEDICAID, SELFPAY ==
[2019-04-15 12:36] VITALS: BMI 16.5
[2019-04-24 12:24] LABS: Absolute Lymphocyte Count 2.31 X10^3/uL (0.83-4.51); Absolute Neutrophil Count 2.4 X10^3/uL (2.0-7.7); Basophil# 0.02 X10^3/uL; Basophil% 0.4 % (0-1); Eosinophil# 0.11 X10^3/uL; Eosinophils% 2.1 % (0-5); Hematocrit 40.8 % (37-47); Hemoglobin 13.8 g/dL (12.0-15.0); Lymphocyte # 2.31 X10^3/ul (4.0); Lymphocyte % 43.5 % (19-41); Mean Corp Hgb Conc 33.8 g/dL (32-36); Mean Corpuscular Hgb 31.9 pg (27.0-32.0); Mean Corpuscular Volume 94.4 fL (81-99); Mean Platelet Vol. 9.7 fl (6.2-12.0); Monocyte# 0.46 X10^3/uL; Monocyte% 8.7 % (0-10); NRBC Flagged by Analyzer 0 % (0-5); Neutrophil % 45.1 % (47-70); Platelet Count 191 K/mm3 (150-450); Red Blood Count 4.32 M/mm3 (4.2-5.4); White Blood Count 5.3 K/mm3 (4.4-11.0)
[2019-04-24 12:44] LABS: ALB/GLOB Ratio 1.2 RATIO (0.9-2.4); AST(SGOT) 15 U/L (15-37); Alanine Aminotransfer ALT/SGPT 17 U/L (13-56); Albumin, Serum 3.7 g/dL (3.2-5.0); Alkaline Phosphatase 48 U/L (45-117); Anion Gap 6 (5-15); BUN 6 mg/dL (7-18); BUN/Creat Ratio 7.2 RATIO (10-20); Calcium,Total 8.8 mg/dL (8.5-10.1); Chloride 112 mmol/L (98-107); Creatinine, Serum 0.83 mg/dL (0.55-1.02); EST Glomerular Filtration Rate 90 mL/min (>60); Est Glom Filt Rate - Afr Amer 108 mL/min (>60); Globulin 3.1 g/dL (2.2-4.2); Glucose 91 mg/dL (74-106); Potassium 4.1 mmol/L (3.5-5.1); Protein, Total 6.8 g/dL (6.4-8.2); Sodium Level 143 mmol/L (136-145); T4 Free Direct 1.15 ng/dL (0.76-1.46); Thyroid Stim Hormone (TSH) 2.25 uIU/mL (0.358-3.74)
== END ==
PROVIDERS: Family Provider Internal Medicine; PCP Internal Medicine; Referring Provider Internal Medicine; Visit Provider Internal Medicine
DX: K58.9 Irritable bowel syndrome, unspecified (principal)
CPT/HCPCS: 36415; 80053; 84439; 84443; 85025

== ENCOUNTER 2019-05-27 11:30 | Outpatient (RCR) | payer MEDICAID, SELFPAY ==
[2019-03-17 16:07] VITALS: BMI 16.5
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
--- NOTE | 2019-07-24 18:25 | HP.PTDCSUM ---
It has been my pleasure to treat JOSIE MORTON referred by ZACH Motta, with the diagnosis of R shoulder pain for a total of 11 visit(s). Discharge Date: Please see the following information for a summary of their discharge status. Subjective: Pt reports she is still sore at this time R shoulder Pain Intensity (Out of 10): 5 % Improvement: 75 Objective/Function: R shoulder pain 0/10 this date. R shoulder MMT 5/5 throughout. I with HEP. Rx goals achieved Goal 1:: Decrease R shoulder pain x 50% to aid with sleep Goal Progress: Goal Met Goal 2:: Increase R shoulder strength x 1 grade to aid with IADL's Goal Progress: Goal Met Goal 3:: I with HEP Goal Progress: Goal Met Plan: Discharge If there are questions or concerns regarding this patient's physical therapy, please feel free to call me at [phone]. Thank you for the referral of this patient. Sincerely, Anival Butler, PT, ATC
== END 2019-05-27 19:00 | disposition home or self-care (01) ==
LOC: PT 11:30
PROVIDERS: Referring Provider Physician Assistant; Visit Provider Physician Assistant
DX: S49.91XD Unspecified injury of right shoulder and upper arm, subsequent encounter (principal); S46.811D Strain of other muscles, fascia and tendons at shoulder and upper arm level, right arm, subsequent encounter
CPT/HCPCS: 97110; 97161; 97164; 97530

== ENCOUNTER → 2019-08-22 | Outpatient (CLI) | payer MEDICAID, SELFPAY ==
[2019-08-18 09:51] VITALS: BMI 16.5
--- NOTE | 2019-08-22 07:41 | US_ITS ---
STUDY: ABDOMINAL ULTRASOUND - RIGHT UPPER QUADRANT REASON FOR VISIT: Female, 23 years old RUQ PAIN TECHNIQUE: Ultrasound evaluation of the right upper quadrant was performed with real-time and static alejandre-scale imaging. TECHNICAL QUALITY: Adequate. COMPARISON: None. FINDINGS: Liver: The liver measures 12.6 cm. There is normal echogenicity of the liver. The bile ducts are within normal limits. There is hepatic color flow. The direction of portal flow is hepatopetal. There is no demonstrated mass lesion. Gallbladder: Normal distended gallbladder. The gallbladder wall measures 2.5 mm. There is a negative sonographic Mcwilliams''s sign. There is no pericholecystic fluid. There are no gallstones. Common Bile Duct (C.B.D.): The common bile duct measures 4.3 mm. Pancreas: Normal size of the head, body and tail of the pancreas. There is normal echogenicity of the pancreas. There is no demonstrated pancreatic mass or cyst. Right Kidney: Normal size of the right kidney. The right kidney measures 10.3 cm x 4.6 cm x 3.4 cm. Normal renal cortex. The right cortex measures 1.4 cm. There is no demonstrated renal mass or cyst. There is no right hydronephrosis. US/Abdomen Limited IMPRESSION: Normal right upper quadrant ultrasound examination. Electronically Signed: Silvino Granda, at 8:54 EDT , Service support ,
== END | disposition home or self-care (01) ==
LOC: US 07:41
PROVIDERS: PCP Internal Medicine; Referring Provider Internal Medicine; Visit Provider Internal Medicine
DX: R10.11 Right upper quadrant pain (principal)
CPT/HCPCS: 76705

== ENCOUNTER → 2019-09-01 | Outpatient (CLI) | payer MEDICAID, SELFPAY ==
[2019-08-18 09:51] VITALS: BMI 16.5
[2019-08-28 08:43] VITALS: BMI 16.5
--- NOTE | 2019-09-01 10:52 | NM_ITS ---
CLINICAL: 23-year-old female with reported history of right upper quadrant abdominal pain and nausea. RADIONUCLIDE HEPATOBILIARY SCINTIGRAPHY COMPARISON: Abdominal ultrasound report 08/22/2019 FINDINGS: Following the intravenous administration of 5.1 mCi of 99m Tc Mebrofenin, hepatobiliary images reveal: 1. Relatively prompt and homogeneous radiopharmaceutical concentration is noted by a normal sized liver. No parenchymal defects are identified. 2. Gallbladder activity is identified at 10 minutes post radiopharmaceutical administration. 3. Small intestinal tract is observed at 30 minutes following tracer injection. 4. Washout of the radiopharmaceutical by the hepatic parenchyma appears qualitatively normal. Cholecystokinin (0.02 ug/kg) was administered intravenously over a 30-minute period. The post CCK gallbladder ejection fraction calculated at 20 minutes following Cholecystokinin administration was noted to be 73.0 % (normal greater than 35%). During 30 minutes of post CCK imaging, there is no scintigraphic evidence of reflux of the radiotracer into the common hepatic duct or refilling of the gallbladder. TX/Hepatobilliary Img w/Pharm Int IMPRESSION: 1. NORMAL 99m Tc Mebrofenin hepatobiliary imaging examination with Cholecystokinin. A. A gallbladder ejection fraction calculated to be greater than 35% following the administration of Cholecystokinin makes the probability of functional hepatobiliary disease (gallbladder and/or sphincter of Oddi dyskinesia) and/or organic hepatobiliary disease (chronic acalculous cholecystitis and/or cystic duct syndrome) to be low. (Mariam Mg et al, Journal of Nuclear Medicine 32:1695, 1991). Electronically Signed: Nik Malhotra DO at 19:46 EDT Tel , Service support ,
== END | disposition home or self-care (01) ==
LOC: NM 10:52
PROVIDERS: PCP Internal Medicine; Referring Provider Internal Medicine; Visit Provider Internal Medicine
DX: R10.11 Right upper quadrant pain (principal)
CPT/HCPCS: 78227; A9537; J2805

== ENCOUNTER → 2020-01-23 | Outpatient (CLI) | payer MEDICAID, SELFPAY ==
[2019-12-22 09:46] VITALS: BMI 16.5
--- NOTE | 2020-01-23 10:05 | NM_ITS ---
CLINICAL: 24-year-old female with reported history of right posterior rib pain. LIMITED PLANAR 99m Tc MDP RADIONUCLIDE BONE SCINTIGRAPHY COMPARISON: None available FINDINGS: Following the intravenous administration of 26.0 mCi of 99m Tc MDP, limited bone acquisitions of the anterior-posterior, bilateral anterior and posterior oblique projections of the chest-ribs reveal: 1. There is no evidence of abnormal increased radiopharmaceutical concentration on review of limited projections with meticulous attention paid to the right anterior-right lateral and right posterior ribs. 2. Normal imaged portions of the renal images are identified bilaterally. NM/Bone Scan Limited Area IMPRESSION: 1. NEGATIVE EXAMINATION. Special attention paid to the right ribs demonstrate no evidence of increased tracer uptake on the current evaluation. Electronically Signed: Nik Malhotra DO at 11:37 EDT Tel , Service support ,
== END | disposition home or self-care (01) ==
LOC: NM 10:05
PROVIDERS: PCP Internal Medicine; Referring Provider Physician Assistant; Visit Provider Physician Assistant
DX: R07.81 Pleurodynia (principal)
CPT/HCPCS: 78300

== ENCOUNTER → 2020-10-26 | Outpatient (CLI) | payer MEDICAID, SELFPAY ==
[2020-10-26 10:33] VITALS: BMI 16.5
[2020-10-29 18:41] LABS: HPV Reflexed? NOT INDICATED
== END | disposition home or self-care (01) ==
LOC: LABSPEC 13:33
PROVIDERS: PCP Internal Medicine; Visit Provider Nurse Practitioner Women's Health
DX: Z12.4 Encounter for screening for malignant neoplasm of cervix (principal)
CPT/HCPCS: 88175; G0145

== ENCOUNTER 2022-04-25 08:51 | Emergency (ER) | payer MEDICAID, SELFPAY ==
[2022-04-25 08:52] VITALS: BP 124/88; PULSE 88; RESP 14; TEMP 36.4; O2SAT 99; BMI 16.0
--- NOTE | 2022-04-25 09:28 | RAD_ITS ---
HISTORY: fall/pain. TECHNIQUE: XR Chest 2 Views. COMPARISON: 03/17/2019. FINDINGS: CARDIOMEDIASTINAL BORDERS: Cardiac silhouette within normal limits in size. Mediastinal contour unremarkable. LUNGS: Radiographically clear. PLEURA: No pleural effusion or pneumothorax seen. OSSEOUS STRUCTURES: Unremarkable. RAD/Chest PA and Lateral IMPRESSION: No acute cardiopulmonary process identified. Electronically Signed: Jessica Woodall MD at 10:13 EST ,
--- NOTE | 2022-04-25 09:28 | CT_ITS ---
HISTORY: fall/trauma. TECHNIQUE: Multiple axial images were obtained of the head without intravenous contrast. A radiation dose optimization technique was used for this scan. 224 images. COMPARISON: None. FINDINGS: BRAIN PARENCHYMA: No significant attenuation abnormality. No acute intra-axial hemorrhage. CSF SPACES: Cerebral ventricles, cortical sulci, and other extra-axial CSF spaces within normal limits in size for age. No midline shift or other significant mass effect. No acute extra-axial hemorrhage. OTHER: Intact calvarium. Small right sphenoid sinus mucous retention cyst. Unremarkable orbits. CT/Brain/Head without Contrast IMPRESSION: No acute intracranial process identified. Electronically Signed: Jessica Woodall MD at 10:10 EST ,
--- NOTE | 2022-04-25 09:28 | RAD_ITS ---
HISTORY: fall/injury. TECHNIQUE: XR Hip Unilateral with Pelvis when performed; 2-3 Views. COMPARISON: CT 08/05/2017. FINDINGS: OSSEOUS STRUCTURES: No acute displaced fracture identified. Note that overlapping bowel shadows may obscure osseous detail. Mineralization unremarkable. JOINT SPACES: No dislocation. Joint spaces maintained. RAD/HIP, UNI W/ Pelvis 2-3 Views IMPRESSION: No acute displaced fracture or dislocation identified. Electronically Signed: Jessica Woodall MD at 10:14 EST ,
--- NOTE | 2022-04-25 09:29 | ED.VIS.FALL ---
HPI HPI - Fall History of Present Illness Chief Complaint: Fall Informant: patient Occured/Mechanism Occurred: Today Fall down steps #: Entire flight Usually ambulates: Without assistance Pain/Injury Pain Location: head, neck (Right lateral) and lower extremity (Right hip sore able to walk) Quality of Pain: Aching Current Severity: Moderate Maximum Severity: Moderate Worsened by: Movement, weightbearing Relieved by: Remaining still Associated Symptoms Associated Symptoms: Negative for Parasthesias, Weakness, Loss of function, Inability to ambulate, Loss of consciousness or Amnesia Narrative Narrative: Patient had recently gotten up and gotten dressed this morning, she was at the top of a flight of stairs on the landing which is carpeted, she states she was not fully awake and her feet slipped and she fell down the entire flight of steps on her back, hitting her head posteriorly on multiple steps during the slide down. She states her right shoulder feels like it is strained a little bit she is able to move it, she is having some soreness at the superior aspect of her right scapula, and although she slid down on her back she has some discomfort in her right chest with movement but not with breathing or pushing around on it. Also her right hip is sore when she climbs steps back up, but she was able to walk without difficulty. She denies any other injuries. She has a headache, some nausea, no vision changes, no vomiting or confusion. Her neck is sore on the right but not in the middle and she has no other areas of back pain. [facility] Medical History Anemia Anxiety and depression Benign tumor of breast Bone fracture Borderline personality disorder Chest pain Chronic neck and back pain Diarrhea Difficulty balancing Frequent headaches GERD (gastroesophageal reflux disease) H/O: pneumonia Hx of migraines IBS (irritable bowel syndrome) Limb weakness Psychiatric care Recurrent infections Seasonal allergies Shortness of breath Home Medications lorazepam 0.5 mg tablet (Ativan) 0.5 mg PO .PRN PRN Anxiety 02/08/22 [History Last Taken Unknown] Allergy/AdvReac Type Severity Reaction Status Date / Time chlorhexidine Allergy Mild Rash Verified 04/25/22 08:54 olanzapine [From Zyprexa] Allergy Rash Verified 04/25/22 08:54 hydrocodone [From Vicodin] AdvReac Mild GI upset Verified 04/25/22 08:54 isopropyl alcohol AdvReac Mild Rash Verified 04/25/22 08:54 [From ChloraPrep Clear] Family History Grandfather Heart disease Diabetes Myocardial infarction Grandmother Colon cancer Cancer malignant melanoma and lung Alcoholism Arthritis H/O blood clots H/O transfusion of whole blood Depression Kidney disease Respiratory disease Skin cancer Suicide attempt Aunt Hodgkin's disease hormone problem Sister PCOS (polycystic ovarian syndrome) Anxiety Father Alcoholism Mother Anxiety defect Depression hormone problem Liver disease Mental disorder Psychiatric care Brother Anxiety defect Surgical History cryotherapy left arm surgery s/p excisional left breast biopsy Social History number of children: 0 current occupational status: employed current occupation: [email or web address], [employer], [employer] Smoking Status: Current every day smoker tobacco type: cigarettes Tobacco: How many years used: 10 alcohol intake: current alcohol intake frequency: holidays/special occasions only substance use type: marijuana caffeine: Yes what type of physical activity do you participate in: none seatbelt use: always do you feel safe at home: Yes additional social history: Single ROS ROS ED Constitutional Constitutional ED: Denies chills or fever(s) Eyes Eyes: Denies blurry vision, change in vision or diplopia ENT ENT ED: Denies ear pain, epistaxis, facial pain or rhinorrhea Cardiovascular Cardiovascular: Reports chest pain; Denies palpitations Respiratory/Chest Respiratory/Chest: Denies cough or dyspnea Gastrointestinal Gastrointestinal: Reports nausea; Denies abdominal pain, diarrhea, melena or vomiting Genitourinary Genitourinary ED: Denies dysuria or hematuria Musculoskeletal Musculoskeletal: Reports extremity pain and neck pain; Denies back pain Integumentary Denies abscess, Abrasions, laceration or rash Neurologic Neurologic: Reports headache(s); Denies confusion, paresthesias or weakness EXAM Physical Exam Const Vital Signs: 04/25/22 08:52 04/25/22 09:02 Temperature 97.5 F L Temperature Source Temporal Pulse Rate 88 Respiratory Rate 14 Respiratory Effort Normal Non-Labored Respiratory Depth Normal Respiratory Pattern Normal Blood Pressure 124/88 H Blood Pressure Mean 100 Pulse Ox 99 Oxygen Delivery Method Room Air Positive well nourished and well developed General Appearance ED: well developed and NAD HEENT Reports nasal mucous membranes and turbinates normal atraumatic Face and Sinus: Negative for facial tenderness Eyes PERRL and EOMs intact bilaterally Visual Acuity: other Other Details: no entrapment or pain with extraocular movements Neck full ROM and supple Neck Narrative: Mild tenderness right lateral strap paraspinal muscles, no midline tenderness. Full range of motion without discomfort or neurologic symptoms. General: tenderness Chest Wall inspection of chest normal and palpation of chest normal Chest Narrative: No sternal tenderness. No splinting with deep inspiration. Equal breath sounds bilaterally. Chest: symmetrical chest wall rise; Negative for crepitus or tenderness Resp normal respiratory effort and clear to auscultation bilaterally Resp Narrative: Conversive in full sentences. Percussion: other equal BS bilat Cardio no murmurs Rate: regular rate Rhythm: regular rhythm GI normal to inspection, nondistended, normoactive bowel sounds, soft to palpation and non-tender Back/Spine normal ROM Cervical Spine: Negative for cervical spine tenderness Thoracic Spine / Upper Back: Negative for thoracic spinal tenderness Lumbar Spine / Lower Back: Negative for lumbar spinal tenderness Extremity normal to inspection and full ROM Extremity Narrative: Mild tenderness right greater trochanter, right pelvic brim, no crepitance, no deformities. Full range of motion of the hip without any groin pain or discomfort. Full range of motion of all other extremities without discomfort including the right shoulder, where she is mildly tender at the scapular spine only. General Extremety ED: Yes tenderness Neuro oriented x3, CN's II-XII intact bilaterally, moves all extremities, no focal motor deficits and no sensory deficits noted Sandra Coma Scale: document GCS findings Spontaneous Obeys Commands Oriented 15 Sensorium / Orientation: awake and alert Psych mental status grossly normal and thought process normal Skin no wounds Lesions: no lesions Rashes: no rashes MDM MDM MDM Narrative Medical decision making narrative: My interpretation of the CT agrees with that of the radiologist. It is negative, with regards to the brain, since she had multiple blunt injuries to the head during this fall, and has headache with some nausea. 2 view chest x-ray my interpretation negative, 3 view right hip and pelvis x-ray on my interpretation negative for anything acute. Radiology in agreement with these interpretations. Patient was given Tylenol and had some improvement, she developed no neurologic symptoms, I do not think she needs any imaging of her neck since she does have some mild paraspinal soreness, same with her shoulder with regards to her range of motion which is excellent without any bony tenderness. She is in agreement that she did not break anything she feels well and is ambulating without limitation so I do not think she needs any further imaging of the right hip. Supportive care advised. Radiography Diagnostic Testing: Clinical Impression(s) from Imaging Studies Brain CT 04/25/22 09:28 IMPRESSION: No acute intracranial process identified. Electronically Signed: Jessica Woodall MD at 10:10 EST , Chest X-Ray 04/25/22 09:28 IMPRESSION: No acute cardiopulmonary process identified. Electronically Signed: Jessica Woodall MD at 10:13 EST , Hip/Pelvis X-Ray 04/25/22 09:28 IMPRESSION: No acute displaced fracture or dislocation identified. Electronically Signed: Jessica Woodall MD at 10:14 EST , Discharge Plan Triage Chief Complaint: Fall ED Provider: Jamal Natarajan Dx/Rx/DC Orders Clinical Impression: Closed head injury without loss of consciousness, Accidental fall on or from stairs or steps, Contusion of hip, right, Acute cervical myofascial strain Instructions: ED Head Injury (Adult) Prescriptions: No Action lorazepam [Ativan] 0.5 mg tablet 0.5 mg PO .PRN PRN (Reason: Anxiety) Primary Care Provider: Lon Murray Referrals: Lon Murray MD [Primary Care Provider] - As Needed Disposition Disposition: Home, Self Care
[2022-04-25] MEDS: Acetaminophen 500 MG Tablet 1000 MG PO (09:44)
[2022-04-25] MEDS: Ondansetron ODT 4 MG Tablet 8 MG PO (09:44)
[2022-04-25 11:15] VITALS: PULSE 79
== END 2022-04-25 11:17 | disposition home or self-care (01) ==
PROVIDERS: Emergency Provider Emergency Medicine; PCP Internal Medicine; Visit Provider Emergency Medicine
DX: S09.90XA Unspecified injury of head, initial encounter (principal); R11.0 Nausea; F17.210 Nicotine dependence, cigarettes, uncomplicated; R51.9 Headache, unspecified; S70.01XA Contusion of right hip, initial encounter; S16.1XXA Strain of muscle, fascia and tendon at neck level, initial encounter; W10.9XXA Fall (on) (from) unspecified stairs and steps, initial encounter
CPT/HCPCS: 70450; 71046; 73502; 99283

== ENCOUNTER → 2022-10-10 | Outpatient (CLI) | payer MEDICAID, SELFPAY ==
--- NOTE | 2022-10-10 18:15 | TILTTABLE_ITS ---
Staff Staff: Poonam Brown and Krista Morales Summary Pre Test Resting HR: 85 Pre Test Resting BP: 107/77 Minimum Test HR: 78 Maximum Test HR: 100 Minimum Test BP: 104/88 Maximum Test BP: 120/95 Physician Tilt Table Report Patient's Physicians Primary Care Physician: Kailey Hyde NP Slide Forming Machine Tender: Olivier Wong Indications/Diagnosis: Tachycardia Procedure Comments: The patient was brought to the cardiovascular suite in the postabsorptive nonsedated state. Informed consent was obtained. Initial vitals were obtained in the supine position with a heart rate at 83 bpm and blood pressure 111/86 mmHg. The patient was then placed in the 70 degree head upright tilt position and continuous EKG monitoring was performed. The maximum heart rate was noted to be 100 bpm with a maximum blood pressure being 120/92 mmHg. The patient did complain of symptoms of diaphoresis numbness feeling warm and clammy. At the end of the test there were no significant EKG or blood pressure abnormalities noted. The vitals are as noted above. Summary: Normal tilt table test with no evidence of postural tachycardia noted.
[2022-10-10 18:19] VITALS: BP 104/88; BP 107/77; BP 120/95
== END | disposition home or self-care (01) ==
LOC: CVS 08:56
PROVIDERS: PCP Nurse Practitioner Family; Referring Provider Nurse Practitioner Family; Visit Provider Nurse Practitioner Family
DX: R00.0 Tachycardia, unspecified (principal)
CPT/HCPCS: 93660; J7040; A4216

== ENCOUNTER → 2022-11-08 | Outpatient (CLI) | payer MEDICAID, SELFPAY | END | disposition home or self-care (01) | LOC: PSN 12:38 | PROVIDERS: PCP Nurse Practitioner Family; Referring Provider Nurse Practitioner Family; Visit Provider Nurse Practitioner Family | DX: R00.0 Tachycardia, unspecified (principal) | CPT/HCPCS: 93225; 93226 ==

== ENCOUNTER → 2023-01-22 | Outpatient (CLI) | payer BC, OTHER, SELFPAY ==
--- NOTE | 2023-01-23 07:50 | PFT ---
INTRODUCTION: The patient is a 27-year-old female who presents for pulmonary function studies secondary to a diagnosis of shortness of breath. Respiratory therapy reported that the patient was unable to meet ATS exhalation criteria. Bronchodilators were used during testing. INTERPRETATION: Forced expiration spirometry demonstrates no evidence of a large airways obstructive ventilatory defect. There was no significant response to aerosolized bronchodilators. Body plethysmography was performed and revealed lung volumes to be within normal limits. Diffusing capacity by single breath CO was also within normal limits. IMPRESSION: Grossly normal pulmonary function studies.
== END | disposition home or self-care (01) ==
PROVIDERS: PCP Nurse Practitioner Family; Referring Provider Internal Medicine Critical Care Medicine; Visit Provider Internal Medicine Critical Care Medicine
DX: R00.2 Palpitations (principal)
CPT/HCPCS: 94060; 94726; 94729

== ENCOUNTER → 2023-01-26 | Outpatient (CLI) | payer BC, OTHER, SELFPAY ==
[2023-01-26 12:58] VITALS: PULSE 101; PULSE 102; PULSE 105; PULSE 108; PULSE 109; PULSE 96; PULSE 97; PULSE 98; O2SAT 97; O2SAT 98; O2SAT 99
--- NOTE | 2023-01-26 13:03 | CPS ---
PATIENT DID NOT REQUIRE OR REQUEST ANY REST BREAKS DURING WALK TEST. SHE WAS ABLE TO CARRY CONVERSATION THROUGHOUT TESTING. SHE WAS ABLE TO WALK 1534FT, NO SUPPLEMENTAL OXYGEN REQUIRED.
--- NOTE | 2023-01-29 07:12 | WT_ITS ---
PSN 6 Minute Walk Test 6 Minute Walk Test 6 Minute Walk Test: 6 Minute Walk Test PSN:6-Minute Walk Test Start: 01/26/23 12:58 Freq: Status: Active Protocol: [id number] Document 01/26/23 12:58 [facility] (Rec: 01/26/23 13:05 [facility] [id number]) 6 Minute Walk Test Date Performed 01/26/23 Time Performed 12:30 Height 5 ft 5 in Weight: 98 lb Weight in Pounds 98.[address]: Cuong Capellan Assistive device used: None Pre-test Oxygen Delivery Method Room Air Pulse Ox 98 Pulse Rate (60-100) 96 Dyspnea Sandeep Scale (0-10) 2 1st minute Oxygen Delivery Method Room Air Pulse Ox 97 Pulse Rate (60-100) 105 H Dyspnea Sandeep Scale (0-10) 2 Number of Rests Taken 0 2nd minute Oxygen Delivery Method Room Air Pulse Ox 97 Pulse Rate (60-100) 102 H Dyspnea Sandeep Scale (0-10) 3 Number of Rests Taken 0 3rd minute Oxygen Delivery Method Room Air Pulse Ox 99 Pulse Rate (60-100) 101 H Dyspnea Sandeep Scale (0-10) 3 Number of Rests Taken 0 4th minute Oxygen Delivery Method Room Air Pulse Ox 98 Pulse Rate (60-100) 98 Dyspnea Sandeep Scale (0-10) 3 Number of Rests Taken 0 5th minute Oxygen Delivery Method Room Air Pulse Ox 99 Pulse Rate (60-100) 108 H Dyspnea Sandeep Scale (0-10) 3 Number of Rests Taken 0 6th minute Oxygen Delivery Method Room Air Pulse Ox 97 Pulse Rate (60-100) 109 H Dyspnea Sandeep Scale (0-10) 4 Number of Rests Taken 0 Reported Symptoms Increased Work of Breathing Post-test Oxygen Delivery Method Room Air Pulse Ox 99 Pulse Rate (60-100) 97 Full Laps Walked 26 Partial Lap, Number of Tiles Walked 0 Total Distance Walked (ft) 1534 01/26/23 13:03 Cardiopulmonary Services by Heavenly Fan PATIENT DID NOT REQUIRE OR REQUEST ANY REST BREAKS DURING WALK TEST. SHE WAS ABLE TO CARRY CONVERSATION THROUGHOUT TESTING. SHE WAS ABLE TO WALK 1534FT, NO SUPPLEMENTAL OXYGEN REQUIRED. Initialized on 01/26/23 13:03 - END OF NOTE Interpretation Interpretation: The patient ambulated 1534 feet over the course of 6 minutes beginning on room air without assistive devices. Pretesting oxygen saturation was noted to be 98% on room air. With ambulation, the claire oxygen saturation was 97%. There was no significant exertional oxygen desaturation. Recommendations Recommendations: There is no indication for the use of supplemental oxygen at this time.
== END | disposition home or self-care (01) ==
PROVIDERS: PCP Nurse Practitioner Family; Referring Provider Internal Medicine Critical Care Medicine; Visit Provider Internal Medicine Critical Care Medicine
DX: R00.2 Palpitations (principal)
CPT/HCPCS: 94618

== ENCOUNTER → 2023-01-31 | Outpatient (CLI) | payer BC, OTHER, SELFPAY ==
--- NOTE | 2023-01-31 12:58 | ECHOD_ITS ---
Reason For Study: MVP Procedure This was a 2D Doppler, Color Flow transthoracic echocardiogram. Exam performed in department. Left Ventricle Normal LV size. Left ventricular systolic function is normal. The estimated ejection fraction is 60 %. No regional wall motion abnormalities noted. Right Ventricle Normal RV size. Normal systolic function. Atria Normal left atrium. Normal right atrium. Mitral Valve Normal mitral valve. Tricuspid Valve Normal tricuspid valve. Aortic Valve Normal aortic valve. Trisinus/trileaflet aortic valve. Pulmonic Valve Normal pulmonic valve. Great Vessels Normal aortic root. The pulmonary artery is normal size. Normal inferior vena cava. Pericardium/Pleural No pericardial effusion. MMode/2D Measurements & Calculations LVIDd: 4.2 cm IVSd: 0.55 cm LAV(MOD-bp): 23.1 ml LVIDs: 2.9 cm LVPWd: 0.85 cm LAV(MOD-bp) Indexed: 15.8 ml/m2 RVDd: 2.1 cm FS: 30.9 % LAV(MOD-sp2): 25.3 ml LAV(MOD-sp4): 20.0 ml SV(MOD-sp4): 30.7 ml SV(sp4-el): 31.7 ml LVAd ap4: 20.3 cm2 LVLd ap4: 6.7 cm EDV(MOD-sp4): 50.2 ml EDV(sp4-el): 52.3 ml LVAs ap4: 11.4 cm2 LVLs ap4: 5.4 cm ESV(MOD-sp4): 19.5 ml ESV(sp4-el): 20.6 ml EF(MOD-sp4): 61.2 % EF(sp4-el): 60.6 % LA A4 area: 10.1 cm2 LA dimension(2D): 2.6 cm RA A4 area: 5.3 cm2 TAPSE: 1.5 cm Time Measurements MV dec time: 0.10 sec Doppler Measurements & Calculations MV E max jose c: 67.7 cm/sec Lat Peak E' Jose C: 18.1 cm/sec Med Peak E' Jose C: 11.4 cm/sec MV A max jose c: 59.1 cm/sec E/E' lat: 3.7 E/E' med: 6.0 MV E/A: 1.1 MV V2 max: 84.6 cm/sec Ao V2 max: 114.6 cm/sec MV max P.9 mmHg MV dec slope: 772.0 cm/sec2 Ao max P.3 mmHg MV V2 mean: 62.4 cm/sec Ao V2 mean: 86.3 cm/sec MV mean P.7 mmHg Ao mean P.2 mmHg MV V2 VTI: 22.2 cm Ao V2 VTI: 20.4 cm AV (velocity ratio): 1.0 LV V1 max: 112.3 cm/sec LV V1 max P.0 mmHg LV V1 mean P.6 mmHg LV V1 mean: 74.9 cm/sec LV V1 VTI: 21.2 cm ECHO/Echo Complete Interpretation Summary Normal LV size. Left ventricular systolic function is normal. The estimated ejection fraction is 60 %. Ordering Physician: Olivier Wong Referring Physician: Olivier Wong Performed By: Mayra Monson RCS
== END | disposition home or self-care (01) ==
LOC: CVS 12:57
PROVIDERS: PCP Nurse Practitioner Family; Referring Provider Internal Medicine Cardiovascular Disease; Visit Provider Internal Medicine Cardiovascular Disease
DX: R00.2 Palpitations (principal)
CPT/HCPCS: 93306

== ENCOUNTER → 2024-08-18 | Outpatient (CLI) | payer SELFPAY ==
[2024-08-21 12:49] LABS: HPV Reflexed? NOT INDICATED
== END | disposition home or self-care (01) ==
LOC: LABSPEC 15:14
PROVIDERS: Referring Provider Obstetrics & Gynecology; Visit Provider Obstetrics & Gynecology
DX: Z12.4 Encounter for screening for malignant neoplasm of cervix (principal)
CPT/HCPCS: 88175; G0145